=== PATIENT | male | born 1995 | race American Indian/Alaskan Native ===

== ENCOUNTER 2020-05-10 15:27 | Emergency (ER) | payer OTHER ==
--- NOTE | 2020-05-10 15:59 | EDM.PDOC ---
ED HPI GENERAL MEDICAL PROBLEM - General Chief Complaint: Respiratory Problem Stated Complaint: covid test/body aches Time Seen by Provider: 05/10/20 15:35 - History of Present Illness INITIAL COMMENTS - FREE TEXT/NARRATIVE: Patient is an otherwise well 25-year-old male presents with concern for Covid infection. Patient was in his usual state of health until yesterday evening when he developed chills. Overnight last night he developed a dry cough diffuse myalgias that improved with NSAIDs and fatigue. He denies chest pain he denies shortness of breath no nausea vomiting or diarrhea. No known Covid exposures no recent travel. Patient denies any other medical problems. No radiation or other associated symptoms patient with minimal symptoms at this time as he took 2 ibuprofen shortly prior to arrival. - Related Data Allergies Allergy/AdvReac Type Severity Reaction Status Date / Time No Known Allergies Allergy Verified 05/10/20 15:44 Home Meds: Home Meds . [No Known Home Meds] 04/29/15 [History] Past Medical History - Past Health History Medical/Surgical History: Denies Medical/Surgical History HEENT History: Reports: None Cardiovascular History: Reports: None Respiratory History: Reports: None Gastrointestinal History: Reports: None Genitourinary History: Reports: None Musculoskeletal History: Reports: None Hematologic History: Reports: None Oncologic (Cancer) History: Reports: None - Infectious Disease History Infectious Disease History: Reports: MRSA Social & Family History - Family History Family Medical History: No Pertinent Family History HEENT: Reports: None Cardiac: Reports: None Respiratory: Reports: None GI: Reports: None : Reports: None OBGYN: Reports: None Musculoskeletal: Reports: None Neurological: Reports: None Psychiatric: Reports: None Endocrine/Metabolic: Reports: None - Caffeine Use Caffeine Use: Reports: Coffee, Soda ED ROS GENERAL - Review of Systems Review Of Systems: See Below Free Text/Narrative/Comment: General Appearance: No acute distress, appears comfortable Skin: No rash HEENT: Normocephalic/atraumatic, sclera anicteric, mucous membranes moist Neck: Normal range of motion Chest and Lungs: Bilateral breath sounds, clear to auscultation Cardiovascular: Regular rate and rhythm, no murmur Neurologic: Awake, alert, no obvious deficits, moving all extremities Psychiatric: Appropriate, cooperative ED EXAM, GENERAL - Physical Exam Exam: See Below Free Text/Narrative:: General Appearance: No acute distress, appears comfortable Skin: No rash HEENT: Normocephalic/atraumatic, sclera anicteric, mucous membranes moist Neck: Normal range of motion Chest and Lungs: Bilateral breath sounds, clear to auscultation Cardiovascular: Regular rate and rhythm, no murmur Abdomen: Soft, non-tender Back: Normal Musculoskeletal: No edema or tenderness Neurologic: Awake, alert, no obvious deficits, moving all extremities Psychiatric: Appropriate, cooperative Course - Vital Signs Last Recorded V/S: Last Vital Signs Temp 96.1 F L 05/10/20 15:27 Pulse 84 05/10/20 15:27 Resp 19 05/10/20 15:27 BP 171/111 H 05/10/20 15:27 Pulse Ox 98 05/10/20 15:27 - Orders/Labs/Meds Labs: Laboratory Tests 05/10/20 Range/Units 15:52 Influenza Type A RNA NEGATIVE (NEGATIVE) Influenza Type B RNA NEGATIVE (NEGATIVE) SARS-CoV-2 RNA (JAMEEL) NEGATIVE (NEGATIVE) Departure - Departure Time of Disposition: 16:44 Disposition: Home, Self-Care 01 Condition: Good Clinical Impression: Viral syndrome - Discharge Information *PRESCRIPTION DRUG MONITORING PROGRAM REVIEWED*: Not Applicable *COPY OF PRESCRIPTION DRUG MONITORING REPORT IN PATIENT AAMIR: Not Applicable Instructions: Viral Illness, Adult Forms: ED Department Discharge Additional Instructions: Your influenza and coronavirus test were negative. You likely have another different type of viral infection. You can take Tylenol and ibuprofen as you need you for symptoms I encourage you to try and stay well-hydrated. Your symptoms may last for as little as 3 or as long as 5 to 7 days. If you have chest pain shortness of breath worsening cough or any other new symptoms that concern you please call your doctor or return to the ER. The following information is given to patients seen in the emergency department who are being discharged to home. This information is to outline your options for follow-up care. We provide all patients seen in our emergency department with a follow-up referral. The need for follow-up, as well as the timing and circumstances, are variable depending upon the specifics of your emergency department visit. If you don't have a primary care physician on staff, we will provide you with a referral. We always advise you to contact your personal physician following an emergency department visit to inform them of the circumstance of the visit and for follow-up with them and/or the need for any referrals to a consulting specialist. The emergency department will also refer you to a specialist when appropriate. This referral assures that you have the opportunity for follow-up care with a specialist. All of these measure are taken in an effort to provide you with optimal care, which includes your follow-up. Under all circumstances we always encourage you to contact your private physician who remains a resource for coordinating your care. When calling for follow-up care, please make the office aware that this follow-up is from your recent emergency room visit. If for any reason you are refused follow-up, please contact the [facility] Department at and asked to speak to the emergency department charge nurse. Sepsis Event Note (ED) - Evaluation Sepsis Screening Result: No Definite Risk - Focused Exam Vital Signs: Vital Signs Temp Pulse Resp BP Pulse Ox 05/10/20 15:27 96.1 F L 84 19 171/111 H 98 - Assessment/Plan Assessment:: 25-year-old male presenting with signs and symptoms most consistent with Covid or other viral syndrome. Influenza considered as well. Covid and flu swab sent.He is without chest pain he is without dyspnea. Given this x-ray not felt to be indicated. No abdominal pain or tenderness no nausea or vomiting nothing to suggest biliary pathology or acute intra-abdominal infection. No complaints that would suggest cellulitis. Covid swab pending. Given his young age and lack of other medical problems he would not be a candidate for remdesivir or other targeted therapies. He is not hypoxic so no indication for Decadron. 1644: Flu and Covid swabs negative. Patient likely has other viral syndrome. The fact that he still infectious was discussed and understood patient given 2 days off work and return precautions discussed and understood.
[2020-05-10 16:37] LABS: CORONAVIRUS COVID-19 NAA NEGATIVE (NEGATIVE); INFLUENZA A NAA NEGATIVE (NEGATIVE); INFLUENZA B NAA NEGATIVE (NEGATIVE)
[2020-05-10 19:20] VITALS: BP 169/108; PULSE 97
== END 2020-05-10 16:55 | disposition home or self-care (01) ==
LOC: MW.ED 15:27
DX: B34.9 Viral infection, unspecified (principal); Z20.822 Contact with and (suspected) exposure to COVID-19
CPT/HCPCS: 0240U; 99283; 99282